=== PATIENT | male | born 1960 | race Asian ===

== ENCOUNTER 2019-10-01 08:13 | Day surgery (SDC) | payer OTHER ==
[2019-10-01 09:26] LABS: POTASSIUM 4.1 mmol/L (3.6-5.2)
[2019-10-01 09:37] LABS: PLATELET COUNT 273 K/uL (142-355)
== END 2019-10-01 13:30 | disposition home or self-care (01) ==
LOC: OR 08:13
PROVIDERS: Student in an Organized Health Care Education/Training Program
DX: Z53.8 Procedure and treatment not carried out for other reasons (principal)
CPT/HCPCS: 80053; 85027; 93005; J0690

== ENCOUNTER 2019-10-05 08:38 | Outpatient (CLI) | payer OTHER ==
[~2019-10-05] VITALS: Ht 175.3 cm; Wt 102.1 kg
== END 2019-10-05 20:14 | disposition home or self-care (01) ==
LOC: NM 08:38
DX: R94.31 Abnormal electrocardiogram [ECG] [EKG] (principal)
CPT/HCPCS: A9500; J2785